=== PATIENT | female | born 1990 | race Caucasian/White ===

== ENCOUNTER → 2018-04-19 | Outpatient (CLI) | payer BC ==
--- NOTE | 2018-04-19 11:18 | RAD ---
AP view abdomen 04/19/2018 Clinical indications: Right renal stone. COMPARISON: None. FINDINGS: There is a nonobstructive bowel gas pattern. No evidence of radiopaque calculus overlying the renal silhouettes or expected course of the ureters, though limited by overlying bowel contents. IMPRESSION: No evidence of nephrolithiasis. Electronically signed by: Flaco Frey MD (04/19/2018 11:15 AM) [id number]
== END | disposition home or self-care (01) ==
LOC: RAD 08:27
PROVIDERS: ATTEND Urology
DX: N20.0 Calculus of kidney (principal)
CPT/HCPCS: 74018